=== PATIENT | female | born 1985 | race Caucasian/White ===

== ENCOUNTER → 2020-03-28 09:49 | Outpatient (CLI) | payer BC, SELFPAY ==
--- NOTE | ~2020-03-28 | US_ITS ---
US right upper quadrant INDICATION: Nausea, severe back pain and abdomen pain PROCEDURE: Realtime right upper abdominal ultrasound. COMPARISON: No prior studies for comparison. FINDINGS: The pancreas is normal without focal mass or pancreatic ductal dilation. Liver echotexture is increased, consistent with fatty infiltration. There is normal directional flow in the portal ve in. Gallbladder is filled with stones. Gallbladder wall is not well visualized. Common bile duct measure s 3 mm. No sonographic Massey's sign. IMPRESSION: 1: Cholelithiasis. 2: Fatty infiltration of the liver. Reviewed, dictated and finalized at location A. ING C[employer]
--- NOTE | ~2020-03-28 | XR_ITS ---
XR UGI w small bowel DATE: 03/28/2020 11:24 INDICATION: Abdominal pain, nausea TECHNIQUE: Air-contrast upper gastrointestinal series 3.3 minutes fluoroscopy time DAP: 58.634 120 fluoroscopic images, 9 overhead images COMPARISON: None FINDINGS: Normal deglutition and esophageal peristalsis. No stricture, mucosal fold thickening, erosi on, ulceration, intraluminal mass lesion or diverticulum of the esophagus, stomach or duodenum is det ected. There is normal transit of contrast until through the small bowel without obstruction. No mucosal fol d thickening, stricture, obstruction or abnormal dilatation, ulceration or diverticulum of the small bowel. Spot radiograph since the terminal ileum are normal. IMPRESSION: Normal upper gastrointestinal series and small bowel Reviewed, dictated and finalized at Location A. Reviewed, dictated and finalized at location B. ON ACREAGE MEASURER
== END ==
PROVIDERS: PCP Physician Assistant; Visit Provider Physician Assistant
DX: R11.0 Nausea (principal); K80.20 Calculus of gallbladder without cholecystitis without obstruction; K76.0 Fatty (change of) liver, not elsewhere classified
CPT/HCPCS: 74240; 74248; 76705

== ENCOUNTER 2020-04-15 00:27 | Outpatient (CLI) | payer BC, SELFPAY ==
[2020-04-15 18:50] LABS: SARS-CoV-2 RNA PCR Negative
== END 2020-04-15 00:28 | disposition home or self-care (01) ==
LOC: ANHCOVIDDT 00:27
PROVIDERS: PCP Physician Assistant; Visit Provider Surgery
DX: Z01.812 Encounter for preprocedural laboratory examination (principal); Z20.822 Contact with and (suspected) exposure to COVID-19
CPT/HCPCS: C9803; U0003

== ENCOUNTER 2020-04-15 09:34 | Outpatient (CLI) | payer BC, SELFPAY ==
[2020-04-15 10:07] LABS: Alanine Aminotransferase 29 U/L (4-35); Albumin Level 4.3 g/dL (3.5-5.1); Alkaline Phosphatase 85 U/L (38-126); Amylase 67 U/L (30-110); Anion Gap 5 mmol/L (8-16); Aspartate Amino Transferase 38 U/L (14-36); Bilirubin,Total 0.4 mg/dL (0.2-1.3); Blood Urea Nitrogen 13 mg/dL (7-17); Calcium 8.6 mg/dL (8.4-10.2); Carbon Dioxide 30 mmol/L (22-30); Chloride 103 mmol/L (98-107); Estimated Glomerular Filt Rate > 60; Glucose 103 mg/dL (65-105); Lipase 117 U/L (23-300); Potassium 4.1 mmol/L (3.4-5.0); Sodium 138 mmol/L (137-145)
== END 2020-04-15 09:35 | disposition home or self-care (01) ==
LOC: ANHSURGERY 09:36
PROVIDERS: PCP Physician Assistant; Visit Provider Surgery
DX: Z01.818 Encounter for other preprocedural examination (principal); K80.10 Calculus of gallbladder with chronic cholecystitis without obstruction
CPT/HCPCS: 36415; 80053; 82150; 82248; 83690; 86850; 86900; 86901

== ENCOUNTER 2020-04-18 00:54 | Day surgery (SDC) | payer BC, SELFPAY ==
[2020-04-11 13:29] VITALS: BMI 34.0
--- NOTE | 2020-04-17 13:12 | WPDANESEPPF ---
Anes - Initial Pre Proc Eval Procedure: Operation Date: 04/18/20 09:00 Proposed Procedures p Laparoscopic Cholecystectomy - Jyothi Beckwith MD Date/Time: 04/17/20 13:12 Surgeon: Jyothi Beckwith MD Pre Op Diagnosis: Chronic Cholecystitis With Stones Patient Data Age: 34 Gender: F Height: 1.68 m Weight: 95.5 kg Allergies Allergy/AdvReac Type Severity Reaction Status Date / Time progesterone Allergy Severe Hives Verified 04/18/20 07:24 cefadroxil [From Duricef] Allergy Mild Hives Verified 04/11/20 13:28 martín Allergy Mild Hives Verified 04/18/20 07:24 Home Medications Medication Instructions Recorded Confirmed Type citalopram 10 mg tablet 10 mg PO HS 04/04/20 04/18/20 History Patient hx anesthesia problems: none Family hx anesthesia problems: none [facility] Past Medical History Medical History (Updated 04/09/20 @ 14:36 by Babs Chong) Anxiety Migraines Family History Family History (Reviewed 04/09/20 @ 14:19 by Roya Flores [facility]) Mother Thyroid cancer Unknown Heart disease Cancer Social History Social History (Reviewed 04/09/20 @ 14:19 by Roya Flores [facility]) Smoking packs per day: 1 Smoking cigarettes per day: 20.0 Years smoked: 3 Smoking pack-years: 3.00 Smoking status: Former smoker Tobacco type: cigarettes Second hand tobacco smoke exposure: No Smoking end date: 04/11/10 Alcohol intake: current Substance use: never Living arrangements: with family Gender identity (if verbalized by the patient): Female Spiritual care concerns: No Anes - Eval Final PreProcedure Day of Procedure 04/17/20 13:12 Patient weight: obese Heart: regular rate and rhythm Lungs: clear to auscultation and normal air movement Airway: Mallampati scale class II Neurological: alert and oriented Last oral intake: >/= 8 hours ASA classification: II Emergent: no Anesthetic plan: proceed Anesthesia type and monitoring: general ETT and standard monitoring Informed Consent: The patient's anesthetic plan and its attendant risks and benefits were discussed with the patient/family/POA. Questions were solicited and answers provided to the satisfaction of the patient/family/POA.
--- NOTE | 2020-04-18 07:23 | WPDHPUPDATE1 ---
History and Physical Update Update Date/Time: 04/18/20 07:23 History and Physical has been reviewed, including an updated exam of the patient. There are NO changes in the patient's condition. Risks, benefits, and alternatives have been discussed and questions answered. Patient agrees to proceed with procedure.
[2020-04-18] MEDS: ACETAMINOPHEN 500 MG TABLET 1000 MG PO (07:32)
[2020-04-18 07:38] VITALS: BP 137/95; PULSE 79; RESP 14; TEMP 35.8; O2SAT 100
[2020-04-18] MEDS: LACTATED RINGERS 1,000 ML 30 ML IV CONT ×2 (07:57→09:40)
[2020-04-18] MEDS: KETOROLAC 15 MG/ML VIAL (*BKC) IV PUSH (07:58)
[2020-04-18] MEDS: ceFAZolin 2 GM/D5W 50 ML 2 GM/50 ML BAG IVPB (08:46)
[2020-04-18] MEDS: LIDO 1%/EPINEPHRINE 1:100,000 50 ML VIAL INFILTRATE (09:11)
--- NOTE | 2020-04-18 09:23 | SUR.OPER ---
ebl 5
--- NOTE | 2020-04-18 09:29 | P.OP_ITS ---
Procedure Note - Detailed Date of procedure: 04/18/20 Pre-op diagnosis: Chronic Cholecystitis With Stones Post-op diagnosis: same Procedure performed: laparoscopic cholecystectomy Description of procedure: The patient was taken to the operating room placed in the supine position. After adequate induction of general anesthesia, the patient was prepped and draped in normal sterile fashion. A time-out was then performed to verify the patient's identity as well as the procedure being performed. I then made a 5 mm incision in the infraumbilical region. Through this, a Veress needle was placed into the peritoneal cavity and CO2 gas was then insufflated. After adequate pneumoperitoneum was achieved, the Veress needle was removed and a 5 mm trocar was placed through this incision. I then placed the laparoscope through this trocar site and under direct visualization placed a further 12 mm subxiphoid port as well as 2 additional 5 mm ports in the right upper abdomen. The gallbladder was then identified and was noted to be modera tely inflamed. I was able to place a grasper at the dome of the gallbladder and this was retracted anterior and cephalad up over the liver. A 2nd retractor was then placed at the infundibulum and retracted laterally, this allowed visualization of the triangle of Calot. I then was able to visualize the cystic duct in its entirety from its proximal insertion into the gallbladder, to its distal junction with the common hepatic/common bile duct junction. At this point, I carefully skeletonized the proximal cystic duct with the [place] dissector. I then clipped and transected the proximal cystic duct. Next I visualized the cystic artery. Again the artery was skeletonized, clipped, and transected. I then used the Bovie cautery to take down the peritoneal attachments of the gallbladder off the liver bed. Once the gallbladder specimen was completely detached, an endo-pouch was placed through the 12 mm port site. I then placed the gallbladder specimen into the Endo pouch and removed the endo- pouch from the 12 mm port site. The specimen will now be sent to pathology for further review. I then copiously irrigated the right upper quadrant. Hemostasis was noted in the liver bed, the clips were noted to be in good position on both the cystic duct stump and the cystic artery stump. No other pathology was noted in the right upper quadrant. I then moved the laparoscope to the subxiphoid port. No iatrogenic injury or other pathology was noted in the lower abdomen. At this point, the abdomen was desufflated and all ports removed. The fascia of the 12 mm subxiphoid port was closed with a 0 Vicryl figure of 8 suture. All port sites were then closed with 4.O Monocryl subcuticular sutures. Dermabond was placed on each incision. The patient tolerated the procedure well, was extubated in the operating room postoperative and will be transferred to the recovery room in stable condition. Implants: none Anesthesia: GETA Surgeon: Jyothi Beckwith MD Estimated blood loss (mL): 5 Drains: No Packing: No Pathology: yes Complications: No immediate complications Condition: stable Disposition: PACU Findings: chronic cholecystitis with cholelithiasis
[2020-04-18 09:40] VITALS: BP 138/66; PULSE 73; RESP 12; TEMP 36; O2SAT 100
[2020-04-18 09:55] VITALS: BP 146/73; PULSE 73; RESP 14; O2SAT 100
[2020-04-18 10:10] VITALS: BP 130/76; PULSE 79; RESP 16; O2SAT 96
[2020-04-18 10:20] VITALS: BP 144/77; PULSE 70; RESP 16; O2SAT 95
[2020-04-18 10:50] VITALS: BP 132/77; PULSE 73; RESP 16; O2SAT 97
[2020-04-18] MEDS: oxyCODONE HCL (*CRX) 5 MG TAB IR PO (10:51)
== END 2020-04-18 12:20 | disposition home or self-care (01) ==
PROVIDERS: PCP Physician Assistant; Visit Provider Surgery
PROC: 0FT44ZZ Resection of Gallbladder, Percutaneous Endoscopic Approach (ICD-10-PCS; CPT 47562; principal; 2020-04-18 09:00)
DX: K80.10 Calculus of gallbladder with chronic cholecystitis without obstruction (principal); F41.9 Anxiety disorder, unspecified; Z87.891 Personal history of nicotine dependence; E66.9 Obesity, unspecified; Z68.33 Body mass index [BMI] 33.0-33.9, adult
CPT/HCPCS: 47562; 88304; A9270; J0690; J1100; J1170; J1885; J2001; J2250; J2405; J2704; J2710; J3010; J7030; J7120

== ENCOUNTER 2021-01-30 18:25 | Emergency (ER) | payer BC, SELFPAY ==
[2021-01-30 18:53] VITALS: BP 177/124; PULSE 96; RESP 18; TEMP 36.8; O2SAT 100
[2021-01-30 19:09] LABS: Basophils Absolute Auto 0.1 K/mm3 (0.0-0.1); Basophils Percent Auto 0.5 % (0.2-1.2); Eosinophils Absolute Auto 0.1 K/mm3 (0-0.3); Eosinophils Percent Auto 1.3 % (0-4.4); Hematocrit 38.2 % (37.0-47.0); Hemoglobin 11.7 g/dL (12.0-15.0); Immature Granulocyte Absolute 0.03 K/mm3 (0.00-0.031); Immature Granulocyte Percent A 0.3 % (0-0.5); Lymphocytes Absolute Auto 3.46 K/mm3 (0.9-3.2); Lymphocytes Percent Auto 31.6 % (18.3-44.2); Mean Corpuscular HGB Conc 30.6 g/dl (32-36); Mean Corpuscular Hemoglobin 25.1 pg (26-34); Mean Corpuscular Volume 81.8 fl (80-100); Mean Platelet Volume 10.7 fl (7.4-10.4); Monocytes Absolute Auto 0.7 K/mm3 (0.1-0.6); Monocytes Percent Auto 6.1 % (2.6-8.5); Neutrophils Absolute Auto 6.6 K/mm3 (1.3-6.7); Neutrophils Percent Auto 60.2 % (45.5-73.1); Platelet Count Result 304 k/mm3 (150-375); Red Blood Count 4.67 M/mm3 (4.2-5.4); Red Cell Distribution Width 13.6 % (11.5-14.5); White Blood Count 10.9 K/mm3 (4.5-10.0)
[2021-01-30 19:37] LABS: Beta HCG Quantitative < 2.39 mIU/ML
--- NOTE | 2021-01-30 21:48 | ED.FEMALEGU ---
HPI - Female Genitourinary General Chief complaint: Vaginal Bleeding Stated complaint: Vaginal Bleeding Time Seen by Provider: 01/30/21 21:48 Source: patient Mode of arrival: ambulatory Limitations: no limitations History of Present Illness HPI Narrative: Patient is a 35-year-old female complaining of vaginal bleeding patient, heavy, x2 weeks. 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 Patient states that she has a follow-up appointment next week. Patient denies being . Patient denies any pelvic pain, abdominal pain, nausea, vomiting, urinary symptoms, fever or chills. Related Data Home Medications Medication Instructions Recorded Confirmed citalopram 10 mg tablet 10 mg PO HS 04/04/20 05/08/20 Allergies Allergy/AdvReac Type Severity Reaction Status Date / Time progesterone Allergy Severe Hives Verified 05/08/20 10:02 cefadroxil [From Duricef] Allergy Mild Hives Verified 05/08/20 10:02 martín Allergy Mild Hives Verified 05/08/20 10:02 Review of Systems Review of Systems: All systems reviewed & are unremarkable except as noted in HPI and below Constitutional: Constitutional: Denies body ache(s), Denies chills, Denies excessive sweating, Denies fatigue, Denies fever(s), Denies headache(s), Denies lethargy, Denies malaise, Denies weakness and Denies weight loss Eyes: Eyes: Denies blurry vision, Denies change in vision and Denies loss of vision ENT: Denies dizziness, Denies ear discharge, Denies headache(s), Denies lip swelling, Denies epistaxis, Denies nasal congestion, Denies neck pain, Denies throat swelling and Denies tongue swelling Cardiovascular: Cardiovascular: Denies chest pain, Denies chest pain at rest, Denies chest pain with activity, Denies diaphoresis, Denies rapid heart rate, Denies edema, Denies irregular heart rhythm, Denies lightheadedness, Denies palpitations, Denies dyspnea and Denies dyspnea on exertion Respiratory: Respiratory: Denies chest congestion, Denies cough, Denies hemoptysis, Denies dyspnea and Denies dyspnea on exertion Gastrointestinal: Gastrointestinal: Denies abdominal pain, Denies melena, Denies hematochezia, Denies diarrhea, Denies nausea, Denies vomiting and Denies hematemesis Musculoskeletal: Musculoskeletal: Denies abnormal gait, Denies deformity, Denies joint swelling, Denies limited range of motion, Denies neck pain and Denies numbness Neurologic: Denies Abnormal speech present, Denies abnormal gait, Denies confusion, Denies dizziness, Denies headache(s), Denies focal weakness, Denies loss of vision, Denies numbness, Denies Other visual disturbances, Denies Sensory deficit (Neuro) and Denies weakness Psychiatric: Psychiatric: Denies confusion, Denies depression, Denies auditory hallucinations, Denies homicidal ideation and Denies suicidal ideation Endocrine: Endocrine: Denies cold intolerance, Denies excessive sweating, Denies fatigue, Denies heat intolerance and Denies palpitations Hematologic/Lymphatic: Hematologic/Lymphatic: Denies easy bruising Allergic/Immunologic: Allergic/Immunologic: Denies lip swelling, Denies throat swelling and Denies tongue swelling PMFSH Past Medical History Medical History Anxiety Migraines Surgical History Surgical History Hx laparoscopic cholecystectomy 04/18/20 Family History Family History Mother Thyroid cancer Unknown Heart disease Cancer Social History Social History Smoking packs per day: 1 Smoking cigarettes per day: 20.0 Years smoked: 3 Smoking pack-years: 3.00 Smoking status: Former smoker Tobacco type: cigarettes Second hand tobacco smoke exposure: No Smoking end date: 04/11/10 Alcohol intake: current Substance use: never Gender
[2021-01-30] MEDS: SODIUM CHLORIDE 0.9% IV 1,000 ML 999 ML IV CONT (22:08)
[2021-01-30 23:33] VITALS: BP 148/86; BP 163/113; PULSE 65; PULSE 76
[2021-01-30 23:35] VITALS: BP 184/124; PULSE 86
[2021-01-30 23:39] VITALS: BP 174/100; PULSE 73; RESP 18; O2SAT 100
[2021-01-30 23:56] LABS: Alanine Aminotransferase 21 U/L (4-35); Albumin Level 4.5 g/dL (3.5-5.1); Alkaline Phosphatase 100 U/L (38-126); Anion Gap 13 mmol/L (8-16); Aspartate Amino Transferase 29 U/L (14-36); Bilirubin,Total 0.4 mg/dL (0.2-1.3); Blood Urea Nitrogen 11 mg/dL (7-17); Calcium 9.2 mg/dL (8.4-10.2); Carbon Dioxide 23 mmol/L (22-30); Chloride 100 mmol/L (98-107); Estimated CRCL calculation 98 ml/min; Estimated Glomerular Filt Rate > 60; Glucose 97 mg/dL (65-110); Potassium 4.1 mmol/L (3.4-5.0); Sodium 136 mmol/L (137-145)
[2021-01-31 00:13] VITALS: BP 145/96; PULSE 82; RESP 15; TEMP 36.8; O2SAT 99
[2021-01-31 00:21] VITALS: BP 145/96; PULSE 81; RESP 18; O2SAT 98
== END 2021-01-31 00:26 | disposition home or self-care (01) ==
PROVIDERS: Emergency Medicine; Emergency Provider Emergency Medicine; PCP Physician Assistant
DX: N93.9 Abnormal uterine and vaginal bleeding, unspecified (principal); Z87.891 Personal history of nicotine dependence; F41.9 Anxiety disorder, unspecified
CPT/HCPCS: 36415; 80053; 84702; 85025; 96360; 99283; J7030

== ENCOUNTER 2021-03-18 11:33 | Outpatient (CLI) | payer BC, SELFPAY ==
--- NOTE | 2021-03-18 11:34 | ECG_ITS ---
Measurements Intervals [place] Rate: 81 P: 10 WV: 139 QRS: -7 QRSD: 99 T: 28 QT: 370 QTc: 432 Interpretive Statements SINUS RHYTHM DELAYED PRECORDIAL R/S TRANSITION MINIMAL Q WAVES- HIGH LATERAL LEADS BASELINE ARTIFACT- II, III, AVF BORDERLINE ECG Electronically Signed On 03-18-2021 11:52:14 PRINCIPAL DATA ARCHITECT by Raymond Donis D.O.
== END 2021-03-18 11:34 | disposition home or self-care (01) ==
LOC: ANHSURGERY 11:33
PROVIDERS: PCP Physician Assistant; Visit Provider Student in an Organized Health Care Education/Training Program
DX: Z01.818 Encounter for other preprocedural examination (principal); N92.1 Excessive and frequent menstruation with irregular cycle; I10 Essential (primary) hypertension
CPT/HCPCS: 36415; 86850; 86900; 86901; 93005

== ENCOUNTER 2021-03-24 00:42 | Day surgery (SDC) | payer BC, SELFPAY ==
[2021-03-14 09:20] VITALS: BMI 33.0
--- NOTE | 2021-03-14 09:36 | PC.NURSE ---
Report to the Outpatient Waiting Room, entrance under the green pavilion located off [facility], at time 11:30 on date 03/24/21. OR Time: 1:30. - You and your visitor will be asked a series of questions to screen for COVID 19 for your protection. - A mask is required within the hospital. - Only one visitor is allowed at this time. Patient visitors will be guided where to wait when not with patient. Preoperative COVID Testing Requirements: No COVID Test needed if: (proof is required; if not received patient will have Rapid Test prior to entry) - Patient has received COVID Vaccine at least 14 days prior to procedure date or - Patient has positive COVID test result within last 90 days of surgery date. COVID Test needed if above criteria is not met If not COVID vaccinated a COVID test must be conducted within 72 hours of surgery and patient is asked to isolate self from time of testing until procedure. You will go to the [facility] for your COVID testing. The [facility] is located at the corner of [address] [facility]. You will only be called if COVID results are positive and your surgeon may reschedule your elective surgery date. Patients may have clear liquids (water, carbonated beverages, clear teas, apple juice) until 3 hours prior to surgery with a maximum of 20 ounces. - No food from midnight until time of surgery - Infants may have breast milk until 4 hours before surgery, infant formula 6 hours prior to surgery. - Children will be allowed to drink immediately following surgery. If applicable, please bring a bottle or sippy cup to assist with drinking. Juice, water, soda, and popsicles are readily available. For infants on formula, please bring formula the day of surgery. Pacifiers are allowed. Take the following medications with a SIP of water the morning of surgery: METHYLPHENIDATE Medications to discontinue per physician: N/A Date to take last dose: N/A Please no make-up, nail greek, hairspray, perfume, deodorant, or body powder the day of surgery. No jewelry (including any body piercings) or valuables the day of surgery, leave them at home. Please take a shower or bath the night before, or the morning of, surgery with an antibacterial soap. Wear comfortable, loose fitting clothing. Children are encouraged to wear pajamas. - Jewelry must be removed prior to entering the operating room. Rings and piercings that are not removed may be cut off. - The hospital will not accept responsibility for valuables. - Please leave all valuables, including medications, at home the day of surgery. If you are going home after surgery, a licensed customer service driver must drive you home. - NO public transportation without another adult. - We recommend that an adult stay with you for 24 hours following discharge. - We also recommend that you do not drive, make important decision, drink alcoholic beverages, or take any drugs that were not prescribed by your health care provider for at least 24 hours after your discharge time. For Pediatric surgeries, we recommend two adults accompany the child home (only one inside the building at this time). Follow any additional instructions given to you from your surgeon. Telephone instructions given to DAMION WHITE and asked if any additional questions and then verbalized understanding. Patient advised to call surgeon office or pre surgery nurse liaison [phone] if any additional questions.
[2021-03-24] VITALS (9 sets, daily range): BP systolic 112–144; BP diastolic 66–92; PULSE 64–87; RESP 10–16; TEMP 36.7–37.1; O2SAT 97–100
--- NOTE | 2021-03-24 07:53 | PM.IMHP ---
H&P: HPI History of Present Illness Date/Time: 03/24/21 07:53 Chief Complaint: abnormal uterine bleeding pelvic pain Narrative: 35 yo who presents for robotic TLH/BS for abnormal uterine bleeding and pelvic pain. Pt has been dealing with AUB for the past several months. Pt was placed on OCPs and continued to have break through bleeding. Pt elected for definitive management via hysterectomy. Review of Systems Cardiovascular: Cardiovascular: Denies chest pain, Denies leg edema, Denies palpitations, Denies dyspnea and Denies dyspnea on exertion Respiratory: Respiratory: Denies cough, Denies dyspnea and Denies dyspnea on exertion Gastrointestinal: Gastrointestinal: Denies abdominal pain, Denies constipation, Denies diarrhea, Denies nausea and Denies vomiting Genitourinary: Genitourinary: Denies hematuria, Denies urinary frequency, Denies dysuria, Denies pelvic pain, Denies urinary incontinence and Denies vaginal discharge Neurologic: Reports system reviewed and no additional complaints, except as documented Psychiatric: Psychiatric: Reports no additional psychiatric complaints Endocrine: Endocrine: Denies palpitations PMFSH Past Medical History Medical History Anxiety Migraines Surgical History Surgical History Hx laparoscopic cholecystectomy 04/18/20 Family History Family History Mother Thyroid cancer Unknown Heart disease Cancer Social History Social History Smoking packs per day: 1 Smoking cigarettes per day: 20.0 Years smoked: 3 Smoking pack-years: 3.00 Smoking status: Former smoker Tobacco type: cigarettes Second hand tobacco smoke exposure: No Smoking end date: 04/12/05 Alcohol intake: current Substance use: never Substance use type: does not use Living arrangements: with family Gender identity (if verbalized by the patient): Female Spiritual care concerns: No Meds Home Medications and Allergies Home Medications Medication Instructions Recorded Confirmed Type escitalopram oxalate 10 mg PO HS 03/14/21 03/14/21 History losartan 100 mg PO DAILY 03/14/21 03/14/21 History methylphenidate HCl 36 mg PO DAILY 03/14/21 03/14/21 History Allergies Allergy/AdvReac Type Severity Reaction Status Date / Time progesterone Allergy Severe Hives Verified 03/14/21 09:16 cefadroxil [From Duricef] Allergy Mild Hives Verified 03/14/21 09:16 martín Allergy Mild Hives Verified 03/14/21 09:16 Exam Const: General: no acute distress Eyes: EOM: EOMs intact bilaterally Neck: Neck: supple Thyroid: thyroid normal Chest: Breast/axilla inspection: normal inspection of the breasts Breast/axilla palpation: normal palpation of the breasts, normal palpation of the axillae and no axillary lymphadenopathy Resp: Effort & Inspection: normal respiratory effort Auscultation: clear to auscultation bilaterally Cardio: Rate: regular rate Rhythm: regular rhythm GI: Inspection: non-distended GI Palp: Yes Soft to palpation, No Tenderness to palpation present (GI) and No Guarding due to palpation present (GI) Auscultation: normal bowel sounds : General: No bladder normal to palpation External Female Exam: normal external appearance Speculum Exam - Vagina: normal vaginal discharge and No vaginal bleeding Speculum Exam - Cervix: nontender Bimanual exam- vagina & uterus: No bladder normal to palpation and No Cervical tenderness present OB/external & speculum: No vaginal bleeding Skin: General skin exam: normal color and no rashes or lesions noted Neuro: Cognition (Neuro): normal cognition Speech: normal speech Extrem: General: normal to inspection and no edema Psych: Mental Status: mental status grossly normal Affect: normal affect Assessment and Plan Assess
--- NOTE | 2021-03-24 07:57 | WPDHPUPDATE1 ---
History and Physical Update Update Date/Time: 03/24/21 07:57 History and Physical has been reviewed, including an updated exam of the patient. There are NO changes in the patient's condition. Risks, benefits, and alternatives have been discussed and questions answered. Patient agrees to proceed with procedure.
[2021-03-24] MEDS: ACETAMINOPHEN 500 MG TABLET 1000 MG PO (12:16)
[2021-03-24] MEDS: LACTATED RINGERS 1,000 ML 30 ML IV CONT ×2 (12:16→15:43)
[2021-03-24] MEDS: KETOROLAC 15 MG/ML VIAL (*BKC) IV PUSH (12:19)
--- NOTE | 2021-03-24 12:21 | WPDANESEPPF ---
Anes - Initial Pre Proc Eval Procedure: Operation Date: 03/24/21 13:30 Proposed Procedures p Robotic Assisted Total Vaginal Hysterectomy with Bilateral Salpingectomy - Leland Bradford MD Date/Time: 03/24/21 12:21 Surgeon: Leland Bradford MD Pre Op Diagnosis: excessive irregular bleeding, pelvic pain, Patient Data Age: 35 Gender: F Height: 1.68 m Weight: 92 kg Last Vital Signs Temp 37.1 C 03/24/21 12:10 Pulse 87 03/24/21 12:10 Resp 16 03/24/21 12:10 BP 144/92 H 03/24/21 12:10 Pulse Ox 100 03/24/21 12:10 Allergies Allergy/AdvReac Type Severity Reaction Status Date / Time progesterone Allergy Severe Hives Verified 03/24/21 11:37 cefadroxil [From Duricef] Allergy Mild Hives Verified 03/24/21 11:37 martín Allergy Mild Hives Verified 03/24/21 11:37 Home Medications Medication Instructions Recorded Confirmed Type escitalopram oxalate 10 mg PO HS 03/14/21 03/24/21 History losartan 100 mg PO DAILY 03/14/21 03/24/21 History methylphenidate HCl 36 mg PO DAILY 03/14/21 03/24/21 History Patient hx anesthesia problems: none Family hx anesthesia problems: none Results Review: All pre-operative results and documents have been reviewed as part of the pre-operative evaluation. [facility] Past Medical History Medical History ADD (attention deficit disorder) Anxiety Hypertension Migraines Surgical History Surgical History Hx laparoscopic cholecystectomy 04/18/20 Family History Family History Mother Thyroid cancer Unknown Heart disease Cancer Social History Social History Smoking packs per day: 1 Smoking cigarettes per day: 20.0 Years smoked: 3 Smoking pack-years: 3.00 Smoking status: Former smoker Tobacco type: cigarettes Second hand tobacco smoke exposure: No Smoking end date: 04/12/05 Alcohol intake: current Substance use: never Substance use type: does not use Living arrangements: with family Gender identity (if verbalized by the patient): Female Spiritual care concerns: No Anes - Eval Final PreProcedure Day of Procedure 03/24/21 12:21 Patient weight: obese Heart: regular rate and rhythm Lungs: clear to auscultation Airway: Mallampati scale class II Neurological: alert and oriented Last oral intake: >/= 8 hours ASA classification: III Emergent: no Anesthetic plan: proceed Anesthesia type and monitoring: general ETT and standard monitoring Results Review: All pre-operative results and documents have been reviewed as part of the pre-operative evaluation. Informed Consent: The patient's anesthetic plan and its attendant risks and benefits were discussed with the patient/family/POA. Questions were solicited and answers provided to the satisfaction of the patient/family/POA.
[2021-03-24] MEDS: GENTAMICIN SULFATE INJ 365 MG in DEXTROSE 5% 100 ML 109.13 MG IVPB (13:53)
[2021-03-24] MEDS: CLINDAMYCIN 900 MG/D5W 50 ML 900 MG/50 ML PIGGYBACK 50 MG IVPB (14:02)
[2021-03-24] MEDS: LIDO 1%/EPINEPHRINE 1:100,000 50 ML VIAL 20 ML INFILTRATE (14:38)
--- NOTE | 2021-03-24 15:23 | SUR.OPER ---
[id number]=[id number]
--- NOTE | 2021-03-24 15:24 | W.PM.PROC2 ---
Procedure Note - Detailed Date of Procedure 03/24/21 Pre-op Diagnosis excessive irregular bleeding, pelvic pain, Post-op Diagnosis same Procedure Performed robotic assisted total laparoscopic hysterectomy and bilateral salpingectomy Surgeon Leland Bradford MD Anesthesia general Description of Procedure After the patient was appropriately consented she was taken to the operating room where she was transferred to the table in a dorsal supine position. General anesthesia was then induced with endotracheal intubation. The patient was transferred to a dorsal lithotomy position using adjustable yellow-fin stirrups. Her position was adjusted for appropriate support of her lower back and lower extremities. The patient was prepped and draped. A transurethral cosby catheter was place. The cervix was sequentially dilated and a MEHRAN uterine manipulator placed in typical fashion about a 3cm DONN ring. Gloves were changed. After confirmation of a functioning orogastric tube, lidocaine was injected at Carreno's point in the LUQ and a 5mm incision was made. A 5mm Optiview trocar was then inserted into the abdominal cavity under direct visualization and done so without complication. The abdomen was then insufflated with approximately 2-3L of CO2 establishing a pneumoperitoneum and the patient was placed in Trendelenburg position. Just above the umbilicus in the midline, a 8 mm incision made after injection of lidocaine and a 8 mm bladeless trocar advanced into the abdominal cavity under direct visualization without incident. We subsequently placed two robotic ports in a similar fashion, one in the left mid-quadrant and one in the right, 10cm lateral to the midline port. The robot was then docked. Attention was turned to the left pelvis. The left fallopian tube was removed by sequentially dividing the mesosalpinx towards the uterus sparing the ovary. The utero-ovarian ligament was desiccated and transected, as was the round ligament. The posterior peritoneal leaf was taken down to the DONN ring. The anterior leaf was developed as well as the start of the bladder flap. The left uterine artery was then skeletonized and desiccated and transected just above the level of the DONN ring. Attention was turned to the right pelvis. The right fallopian tube was removed by sequentially dividing the mesosalpinx towards the uterus sparing the ovary. The utero-ovarian ligament was desiccated and transected, as was the round ligament. The posterior peritoneal leaf was taken down to the DONN ring. The anterior leaf was developed as well as the start of the bladder flap. The right uterine artery was then skeletonized and desiccated and transected just above the level of the DONN ring. The bladder was then further dissected inferiorly over the level of the DONN ring. A circumferential colpotomy was made using monopolar current. The uterus, cervix, bilateral tubes were then delivered transvaginally. I then placed a single figure of eight suture of 0-vicryl in the left corner of the vaginal cuff. I then re-approximated the colpotomy with a running #1 PDO Quill suture in 2 layers. Following this dissection, the abdomen and pelvis were copiously irrigated and all surgical sites found to be hemostatic. Skin sites were reapproximated with 4-0 Vicryl in a subcuticular fashion. Steri-Strips were placed. The patient tolerated the procedure well. Sponge, needle and instrument counts were correct x 2 and the patient was taken to recovery in stable condition. Ancef wase given for antimicrobial prophylaxis. The patient had SCD's on for VTE prophylaxis during the entire procedure. Estimated Blood Loss 100 Drains No Packing No Pathology yes (cervix, uterus, bilateral fallopian tubes) Complications No immediate complications Condition stable Disposition PACU
[2021-03-24] MEDS: KETOROLAC 30 MG/ML VIAL (*BKC) IV PUSH (17:42)
[2021-03-24] MEDS: LACTATED RINGERS 1,000 ML 125 ML IV CONT (17:42)
--- NOTE | 2021-03-24 17:56 | ADMGEN ---
1720-This patient, Lisa Palafox, was admitted to OB 2nd Floor Room 280-00. Patient/family oriented to hospital policies and general routines including ID bracelet, bed and alarms, visiting hours, pain management, procedures, bathroom and other care routines, personal items, smoking policy, room service/diet, and visiting hours. Information on how to activate the Rapid Response Team has been discussed. Patient/Family are encouraged to report perceived risks to care and to ask questions if they do not understand what they are told or what they should do.
[2021-03-24] MEDS: ESCITALOPRAM OXALATE 10 MG TABLET PO (21:17)
[2021-03-24] MEDS: SENNA/DOCUSATE SODIUM TABLET 2 TAB PO (21:17)
[2021-03-25 00:30] VITALS: BP 114/82; PULSE 80; RESP 18; TEMP 35.7; O2SAT 98
[2021-03-25] MEDS: KETOROLAC 30 MG/ML VIAL (*BKC) IV PUSH (01:00)
[2021-03-25] MEDS: LACTATED RINGERS 1,000 ML 125 ML IV CONT (02:03)
[2021-03-25 04:47] VITALS: BP 126/77; PULSE 72; RESP 16; TEMP 36; O2SAT 98
[2021-03-25 05:56] LABS: Basophils Absolute Auto 0.1 K/mm3 (0.0-0.1); Basophils Percent Auto 0.6 % (0.2-1.2); Eosinophils Absolute Auto 0.1 K/mm3 (0-0.3); Eosinophils Percent Auto 0.9 % (0-4.4); Hematocrit 30.5 % (37.0-47.0); Hemoglobin 9.3 g/dL (12.0-15.0); Immature Granulocyte Absolute 0.03 K/mm3 (0.00-0.031); Immature Granulocyte Percent A 0.3 % (0-0.5); Lymphocytes Absolute Auto 2.55 K/mm3 (0.9-3.2); Lymphocytes Percent Auto 28.7 % (18.3-44.2); Mean Corpuscular HGB Conc 30.5 g/dl (32-36); Mean Corpuscular Hemoglobin 24.2 pg (26-34); Mean Corpuscular Volume 79.2 fl (80-100); Mean Platelet Volume 10.9 fl (7.4-10.4); Monocytes Absolute Auto 0.6 K/mm3 (0.1-0.6); Monocytes Percent Auto 6.2 % (2.6-8.5); Neutrophils Absolute Auto 5.6 K/mm3 (1.3-6.7); Neutrophils Percent Auto 63.3 % (45.5-73.1); Platelet Count Result 286 k/mm3 (150-375); Red Blood Count 3.85 M/mm3 (4.2-5.4); Red Cell Distribution Width 14.4 % (11.5-14.5); White Blood Count 8.9 K/mm3 (4.5-10.0)
[2021-03-25 06:24] LABS: Anion Gap 4 mmol/L (8-16); Blood Urea Nitrogen 6 mg/dL (7-17); Calcium 7.8 mg/dL (8.4-10.2); Carbon Dioxide 25 mmol/L (22-30); Chloride 103 mmol/L (98-107); Estimated CRCL calculation 127 ml/min; Estimated Glomerular Filt Rate > 60; Glucose 87 mg/dL (65-110); Potassium 4.2 mmol/L (3.4-5.0); Sodium 132 mmol/L (137-145)
--- NOTE | 2021-03-25 07:24 | WPDANESPN ---
Anes - Prog Note Post-Op Date/Time: 03/25/21 07:24 Cardiovascular status: normal Respiratory status: normal Airway patency: baseline Mental status: baseline Post-Op hydration status: normal Vital Signs: Last Vital Signs Temp 36.0 C L 03/25/21 04:47 Pulse 72 03/25/21 04:47 Resp 16 03/25/21 04:47 BP 126/77 03/25/21 04:47 Pulse Ox 98 03/25/21 04:47 Pain Score (VAS): 0 I/O: Intake & Output 03/24/21 03/24/21 03/25/21 15:59 23:59 07:59 Intake Total 1159.611 472 4834 Output Total 500 700 Balance 1159.125 50 675 Laboratory Tests 03/25/21 05:03 03/25/21 05:03 03/25/21 03/25/21 05:03 05:03 WBC 8.9 RBC 3.85 L Hgb 9.3 L Hct 30.5 L MCV 79.2 L MCH 24.2 L MCHC 30.5 L RDW 14.4 Plt Count 286 MPV 10.9 H Immature Gran % (Auto) 0.3 Neut % (Auto) 63.3 Lymph % (Auto) 28.7 [place] % (Auto) 6.2 Eos % (Auto) 0.9 Baso % (Auto) 0.6 Lymph # (Auto) 2.55 [place] # (Auto) 0.6 Eos # (Auto) 0.1 Baso # (Auto) 0.1 Abs Immat Gran (auto) 0.03 Absolute Neuts (auto) 5.6 Absolute Nucleated RBC 0.0 Nucleated RBC % 0.0 Sodium 132 L Potassium 4.2 Chloride 103 Carbon Dioxide 25 Anion Gap 4 L BUN 6 L D Creatinine 0.60 L Estim Creat Clear Calc 127 Estimated GFR > 60 Glucose 87 Calcium 7.8 L Post-procedural complaints: none Patient Feedback: Patient satisfied with anesthetic care.
[2021-03-25 07:40] VITALS: BP 133/82; PULSE 82; RESP 18; TEMP 36.7; O2SAT 98
--- NOTE | 2021-03-25 07:44 | PM.DS ---
DS: Admitting Diagnosis Discharge Date 03/25/21 Admitting Diagnosis AUB pelvic pain DS: Summary Hospital Course Hospital Course: Lisa Palafox was admitted after robotic assisted total laparoscopic hysterectomy and bilateral salpingectomy for abnormal uterine bleeding and pelvic pain. The above procedure was performed with no complications. She is doing well post op. She states her pain is well controlled with PO medications. She reports minimal bleeding. She is ambulating up to the chair. Her cosby catheter was removed. She is tolerating PO without N/V. She reports passing flatus. Status at Discharge Overall status at discharge: patient is progressing back to baseline Time Spent with Patient Time attestation: Total time spent providing and/or coordinating discharge services: Time spent: Less than 30 minutes Exam Const: General: comfortable and no acute distress Limitations: no limitations Resp: Effort & Inspection: normal respiratory effort Auscultation: clear to auscultation bilaterally Cardio: Rate: regular rate Rhythm: regular rhythm GI: Inspection: non-distended GI Palp: Yes Soft to palpation, Yes Tenderness to palpation present (GI) (milder tenderness to deep palpation) and No Guarding due to palpation present (GI) Auscultation: normal bowel sounds Other: incisions C/D/I covered with dermabond Urinary Catheter: Urinary Catheter: urine clear Skin: General skin exam: normal color Extrem: General: normal to inspection Psych: Mental Status: mental status grossly normal Affect: normal affect DS: Data Data Completed and Pending Pending studies at discharge: Pending at discharge 03/24/21 14:34 Surgical [PTH] Routine Labs on day of discharge: Labs from last 24 hours 03/25/21 03/25/21 05:03 05:03 WBC 8.9 RBC 3.85 L Hgb 9.3 L Hct 30.5 L MCV 79.2 L MCH 24.2 L MCHC 30.5 L RDW 14.4 Plt Count 286 MPV 10.9 H Immature Gran % (Auto) 0.3 Neut % (Auto) 63.3 Lymph % (Auto) 28.7 [place] % (Auto) 6.2 Eos % (Auto) 0.9 Baso % (Auto) 0.6 Lymph # (Auto) 2.55 [place] # (Auto) 0.6 Eos # (Auto) 0.1 Baso # (Auto) 0.1 Abs Immat Gran (auto) 0.03 Absolute Neuts (auto) 5.6 Absolute Nucleated RBC 0.0 Nucleated RBC % 0.0 Sodium 132 L Potassium 4.2 Chloride 103 Carbon Dioxide 25 Anion Gap 4 L BUN 6 L D Creatinine 0.60 L Estim Creat Clear Calc 127 Estimated GFR > 60 Glucose 87 Calcium 7.8 L Discharge Plan Discharge Patient Disposition: Home, Self-Care Discharge Instructions: call or return for temperature >100.4, bleeding >2 pads/hr for 2 hrs, pain not controlled with medications Patient Instructions: Laparoscopic Hysterectomy (DC) Stand Alone Forms: General Discharge Instructions Follow-up/Referrals: Leland Bradford MD [Physician] - 2 Weeks Discharge Medications: New sennosides-docusate sodium [Senokot-S] 8.6-50 mg Tablet 2 tab PO HS Qty: 30 RF: 0 ibuprofen 600 mg Tablet 600 mg PO Q6H PRN (Reason: Cramping) Qty: 30 RF: 0 oxycodone-acetaminophen 5-325 mg tablet 1 tablet PO Q6H PRN (Reason: pain) Qty: 28 RF: 0 Continued losartan 50 mg tablet 100 mg PO DAILY RF: 0 methylphenidate HCl 36 mg tablet extended release 24hr 36 mg PO DAILY RF: 0 escitalopram oxalate 20 mg tablet 10 mg PO HS RF: 0
[2021-03-25] MEDS: LOSARTAN POTASSIUM 50 MG TABLET 100 MG PO (08:22)
[2021-03-25] MEDS: IBUPROFEN 600 MG TABLET PO (08:23)
[2021-03-25] MEDS: HYDROcodone/acetaminophen (*CRX) 5-325 MG TABLET 1 TAB PO (08:24)
== END 2021-03-25 11:20 | disposition home or self-care (01) ==
LOC: ANHSURGERY 11:29 → ANHOB2 17:20
PROVIDERS: PCP Physician Assistant; Visit Provider Student in an Organized Health Care Education/Training Program
PROC: (CPT 58571; principal; 2021-03-24 13:30)
DX: N93.9 Abnormal uterine and vaginal bleeding, unspecified (principal); R10.2 Pelvic and perineal pain; N83.8 Other noninflammatory disorders of ovary, fallopian tube and broad ligament; N73.6 Female pelvic peritoneal adhesions (postinfective); F98.8 Other specified behavioral and emotional disorders with onset usually occurring in childhood and adolescence; I10 Essential (primary) hypertension; F41.9 Anxiety disorder, unspecified; Z87.891 Personal history of nicotine dependence; Z23 Encounter for immunization; E66.9 Obesity, unspecified; Z68.32 Body mass index [BMI] 32.0-32.9, adult
CPT/HCPCS: 58571; S2900; 36415; 80048; 85025; 88307; 90471; 90653; 99199; A9270; G0008; J1170; J1580; J1885; J2250; J2405; J2704; J2710; J3010; J7030; J7120

== ENCOUNTER 2021-04-23 18:47 | Observation (INO) | payer BC, SELFPAY ==
[2021-04-23] VITALS (8 sets, daily range): BP systolic 120–161; BP diastolic 80–114; PULSE 66–116; RESP 14–18; TEMP 36.6–36.8; O2SAT 99–100; BMI 31.4
--- NOTE | 2021-04-23 20:09 | ED.FEMALEGU ---
HPI - Female Genitourinary General Chief complaint: Vaginal Bleeding Stated complaint: unknown Time Seen by Provider: 04/23/21 20:08 Source: patient Mode of arrival: ambulatory Limitations: no limitations History of Present Illness HPI Narrative: Patient is 35 years old white female status post hysterectomy secondary to uncontrollable vaginal bleeding from March 24, 2021. Patient been having intermittent vaginal bleeding, lower abdominal cramps since that time until now. Today work-up with lower back pain, at 5:30 PM today started having quite a bit of vaginal bleeding with a lot of blood clots. Patient been feeling dizzy unable to sit because of lightheadedness. Related Data Home Medications Medication Instructions Recorded Confirmed escitalopram oxalate 10 mg PO HS 03/14/21 03/24/21 losartan 100 mg PO DAILY 03/14/21 03/24/21 methylphenidate HCl 36 mg PO DAILY 03/14/21 03/24/21 Allergies Allergy/AdvReac Type Severity Reaction Status Date / Time progesterone Allergy Severe Hives Verified 03/24/21 11:37 cefadroxil [From [facility]] Allergy Mild Hives Verified 03/24/21 11:37 martín Allergy Mild Hives Verified 03/24/21 11:37 Review of Systems Review of Systems: CONSTITUTIONAL: Denies fever, chills, or sweats. EYES: Denies visual changes, redness, or discharge. ENT: Denies rhinorrhea, congestion, sore throat, or otalgia. CARDIOVASCULAR: Denies chest pain, palpitations, or edema. RESPIRATORY: Denies cough or dyspnea. GASTROINTESTINAL: Denies abdominal pain, nausea, vomiting, or diarrhea. GENITOURINARY: Denies dysuria or hematuria. SKIN: Denies rash or itching. MUSCULOSKELETAL: Denies back pain, joint pain, or myalgia. NEUROLOGIC: Denies headache, numbness, or weakness. PSYCHIATRIC: Denies anxiety or depression. [facility] Past Medical History Medical History ADD (attention deficit disorder) Anxiety Hypertension Migraines Surgical History Surgical History Hx laparoscopic cholecystectomy 04/18/20 Family History Family History Mother Thyroid cancer Unknown Heart disease Cancer Social History Social History Smoking packs per day: 1 Smoking cigarettes per day: 20.0 Years smoked: 3 Smoking pack-years: 3.00 Smoking status: Former smoker Tobacco type: cigarettes Second hand tobacco smoke exposure: No Smoking end date: 04/12/05 Alcohol intake: current Substance use: never Substance use type: does not use Gender identity (if verbalized by the patient): Female Spiritual care concerns: No Exam Narrative: General appearance: Well-developed, well-nourished Skin: Pale Head: Normocephalic, nontraumatic Eyes: Clear conjunctiva ENT: Oropharynx normal, ears normal, nose normal Neck: Supple, nontender Chest and respiratory: Airway patent, no respiratory distress, no accessory muscle use Heart: Regular rate/rhythm Abdomen: Soft, nontender, no organomegaly, quiet bowel sounds Vascular: Normal peripheral pulses, normal capillary refill. Musculoskeletal: Normal range of motion, nontender back Neurologic: Alert and oriented ?3, PIPE SETTER is normal as tested, no gross motor deficit : External Female Exam: normal external appearance Speculum Exam - Vagina: vaginal bleeding (Largest size 10 x 5 cm blood clot in the vaginal pouch with bleeding) Course Course Emergency Course: Stable Consultations Consultation #1: Dr. Vallejo 1 g of TXA IV, admit to observation Date: 04/23/21 Time: 21:54 Vital Signs Vital signs: Vital S
--- NOTE | 2021-04-23 20:29 | PC.NURSE ---
Pelvic exam by ERP Dr. Andrews, this RN at bedside.
[2021-04-23] MEDS: SODIUM CHLORIDE 0.9% IV 1,000 ML 999 ML IV CONT (20:44)
[2021-04-23 21:04] LABS: Basophils Percent Auto 0.7 % (0.2-1.2); Eosinophils Absolute Auto 0.1 K/mm3 (0-0.3); Eosinophils Percent Auto 1.3 % (0-4.4); Hematocrit 31.5 % (37.0-47.0); Hemoglobin 9.9 g/dL (12.0-15.0); Immature Granulocyte Absolute 0.02 K/mm3 (0.00-0.031); Immature Granulocyte Percent A 0.3 % (0-0.5); Lymphocytes Absolute Auto 0.84 K/mm3 (0.9-3.2); Lymphocytes Percent Auto 14.1 % (18.3-44.2); Mean Corpuscular HGB Conc 31.4 g/dl (32-36); Mean Corpuscular Hemoglobin 24.7 pg (26-34); Mean Corpuscular Volume 78.6 fl (80-100); Mean Platelet Volume 11.9 fl (7.4-10.4); Monocytes Absolute Auto 0.5 K/mm3 (0.1-0.6); Monocytes Percent Auto 8.7 % (2.6-8.5); Neutrophils Absolute Auto 4.5 K/mm3 (1.3-6.7); Neutrophils Percent Auto 74.9 % (45.5-73.1); Platelet Count Result 192 k/mm3 (150-375); Red Blood Count 4.01 M/mm3 (4.2-5.4); Red Cell Distribution Width 15.4 % (11.5-14.5)
[2021-04-23 21:56] LABS: Alanine Aminotransferase 26 U/L (4-35); Albumin Level 3.4 g/dL (3.5-5.1); Alkaline Phosphatase 71 U/L (38-126); Anion Gap 3 mmol/L (8-16); Aspartate Amino Transferase 28 U/L (14-36); Bilirubin,Total 0.3 mg/dL (0.2-1.3); Blood Urea Nitrogen 8 mg/dL (7-17); Calcium 7.5 mg/dL (8.4-10.2); Carbon Dioxide 25 mmol/L (22-30); Chloride 107 mmol/L (98-107); Estimated CRCL calculation 109 ml/min; Estimated Glomerular Filt Rate > 60; Glucose 99 mg/dL (65-110); Potassium 3.5 mmol/L (3.4-5.0); Sodium 135 mmol/L (137-145)
[2021-04-23] MEDS: TRANEXAMIC ACID 1,000MG/ISO100 1,000 MG/100 ML BAG 200 MG IVPB (22:37)
[2021-04-23] MEDS: SODIUM CHLORIDE 0.9% IV 1,000 ML 150 ML IV CONT (23:19)
--- NOTE | 2021-04-23 23:25 | ADMGEN ---
This patient, Lisa Plaafox, was admitted to OB 2nd Floor Room 285-00. Patient/family oriented to hospital policies and general routines including ID bracelet, bed and alarms, visiting hours, pain management, procedures, bathroom and other care routines, personal items, smoking policy, room service/diet, and visiting hours. Information on how to activate the Rapid Response Team has been discussed. Patient/Family are encouraged to report perceived risks to care and to ask questions if they do not understand what they are told or what they should do.
[2021-04-24 00:20] LABS: Hematocrit 27.8 % (37.0-47.0); Hemoglobin 8.9 g/dL (12.0-15.0)
[2021-04-24 03:30] VITALS: BP 123/77; PULSE 79; RESP 18; TEMP 36.7
[2021-04-24] MEDS: SODIUM CHLORIDE 0.9% IV 1,000 ML 150 ML IV CONT (05:37)
[2021-04-24 05:50] LABS: Hemoglobin 8.2 g/dL (12.0-15.0)
[2021-04-24 08:10] VITALS: BP 123/83; PULSE 84; RESP 18; TEMP 36.4; O2SAT 99
[2021-04-24] MEDS: FERRIC SUBSULFATE 8 ML SOLUTION WITH APPLICATOR (09:00)
--- NOTE | 2021-04-24 09:00 | PC.NURSE ---
Dr. Bradford here to examine pt. RN assisted MD with speculum exam and application of Monsel's solution.
--- NOTE | 2021-04-24 09:32 | PM.IMHP ---
H&P: HPI History of Present Illness Date/Time: 04/24/21 09:32 Chief Complaint: vaginal bleeding Narrative: 35 yo female who presented to the ED for acute onset heavy vaginal bleeding. Pt is s/p a robotic hysterectomy on 03/24/21. Pt states she has had on and off vaginal bleeding since her 2 wk post op visit. She states the bleeding was typically light and only spotting. She states that yesterday she woke up with lower back pain. She states the pain persisted and then she started having heavier vaginal bleeding. She reports passing several palm size blood clots. Pt also started to feel dizzy and light headed so presented to the ED. Pt was noted to be anemic on evaluation. She was given TXA to control her bleeding. She states her bleeding has decreased since admission. She has only had a scant amount of blood on pads. She denies any continued lower back pain. Pt denies any diarrhea or constipation. Review of Systems Cardiovascular: Cardiovascular: Denies chest pain, Denies leg edema, Denies palpitations, Denies dyspnea and Denies dyspnea on exertion Respiratory: Respiratory: Denies cough, Denies dyspnea and Denies dyspnea on exertion Gastrointestinal: Gastrointestinal: Denies abdominal pain, Denies constipation, Denies diarrhea, Denies nausea and Denies vomiting Genitourinary: Genitourinary: Denies hematuria, Denies urinary frequency, Denies dysuria, Denies pelvic pain, Denies urinary incontinence and Denies vaginal discharge Neurologic: Reports system reviewed and no additional complaints, except as documented Psychiatric: Psychiatric: Reports no additional psychiatric complaints Endocrine: Endocrine: Denies palpitations PMFSH Past Medical History Medical History ADD (attention deficit disorder) Anxiety Hypertension Migraines Surgical History Surgical History Hx laparoscopic cholecystectomy 04/18/20 Family History Family History (Updated 04/23/21 @ 23:46 by Luli Ryan RN) Mother Thyroid cancer Heart disease Social History Social History Smoking packs per day: 1 Smoking cigarettes per day: 20.0 Years smoked: 3 Smoking pack-years: 3.00 Smoking status: Former smoker Tobacco type: cigarettes Second hand tobacco smoke exposure: No Smoking end date: 04/12/05 Alcohol intake: never Substance use: never Substance use type: does not use Gender identity (if verbalized by the patient): Female Spiritual care concerns: No Meds Home Medications and Allergies Home Medications Medication Instructions Recorded Confirmed Type escitalopram oxalate 10 mg PO HS 03/14/21 04/23/21 History losartan 100 mg PO DAILY 03/14/21 04/23/21 History methylphenidate HCl 36 mg PO DAILY 03/14/21 04/23/21 History ibuprofen 600 mg PO Q6H PRN #30 tablet 03/25/21 04/23/21 Rx Allergies Allergy/AdvReac Type Severity Reaction Status Date / Time progesterone Allergy Severe Hives Verified 03/24/21 11:37 [facility]ad[facility]il [[facility] Allergy Mild Hives Verified 03/24/21 11:37 martín Allergy Mild Hives Verified 03/24/21 11:37 Vital Signs Vital Signs - 24 hr 04/23/21 18:51 04/23/21 20:39 04/23/21 21:06 Temperature 36.6 C Pulse Rate 94 88 88 Respiratory Rate 18 14 16 Blood Pressure 121/83 129/90 120/80 Pulse Oximetry 100 99 100 04/23/21 22:35 04/23/21 22:37 04/23/21 22:39 Temperature Pulse Rate 88 116 H Respiratory Rate Blood Pressure 138/86 141/90 H 161/114 H Pulse Oximetry 04/23/21 22:46 04/23/21 23:25 04/24/21 03:30 Temperature 36.8 C 36.7 C Pulse Rate 86 66 79 Respiratory Rate 18 18 18 Blood Pressure 141/90 H 132/96 H 123/77 Pulse Oximetry 100 04/24/21 08:10 Temperature 36.4 C L Pulse Rate 84 Respiratory Rate 18 Blood Pressure 123/83 Pulse Oximetry 99 Exam Const: General: no acute distress Eyes: EOM: EOMs
[2021-04-24 12:22] VITALS: BP 120/82; PULSE 66; RESP 18; TEMP 36.7; O2SAT 99
[2021-04-24 12:50] VITALS: BP 111/68; PULSE 91; RESP 18; TEMP 37.4
[2021-04-24] MEDS: POLYSACCHARIDE IRON COMPLEX 150 MG CAPSULE PO (13:00)
[2021-04-24] MEDS: SENNA/DOCUSATE SODIUM TABLET 1 TAB PO (13:00)
--- NOTE | 2021-04-24 16:00 | PM.DS ---
DS: Admitting Diagnosis Discharge Date 04/24/21 Admitting Diagnosis vaginal bleeding DS: Summary Hospital Course Hospital Course: 35 yo female who presented with acute onset heavy vaginal bleeding. pt is s/p hysterectomy on 03/24/21. She was noted to be anemic on evaluation. Vaginal cuff was inspected and noted to be intact. Pt received IV TXA to help control bleeding. Pt was treated with Monsel's solution in the vaginal cuff. Pt had no further bleeding and was discharged home in stable condition. Status at Discharge Functional status at discharge: independent ambulation Overall status at discharge: patient is progressing back to baseline Time Spent with Patient Time attestation: Total time spent providing and/or coordinating discharge services: Time spent: Less than 30 minutes Exam Const: General: cooperative, healthy appearing and comfortable Eyes: General: appearance normal, both eyes and all related structures Resp: Effort & Inspection: normal respiratory effort and able to speak in complete sentences Cardio: Rate: regular rate GI: Inspection: normal to inspection and no abdominal wall ecchymosis GI Palp: No Tenderness to palpation present (GI) : Speculum Exam - Vagina: vaginal bleeding and other (suture material visualized ) Speculum Exam - Cervix: Cervix absent Bimanual exam- vagina & uterus: uterus absent DS: Data Data Completed and Pending Labs on day of discharge: Labs from last 24 hours 04/24/21 04/24/21 04/23/21 05:30 00:07 21:37 WBC RBC Hgb 8.2 L 8.9 L Hct 26.0 L 27.8 L MCV MCH MCHC RDW Plt Count MPV Immature Gran % (Auto) Neut % (Auto) Lymph % (Auto) [place] % (Auto) Eos % (Auto) Baso % (Auto) Lymph # (Auto) [place] # (Auto) Eos # (Auto) Baso # (Auto) Abs Immat Gran (auto) Absolute Neuts (auto) Absolute Nucleated RBC Nucleated RBC % Sodium 135 L Potassium 3.5 Chloride 107 Carbon Dioxide 25 Anion Gap 3 L BUN 8 Creatinine 0.70 Estim Creat Clear Calc 109 Estimated GFR > 60 Glucose 99 Calcium 7.5 L Total Bilirubin 0.3 AST 28 ALT 26 Alkaline Phosphatase 71 Total Protein 6.0 L Albumin 3.4 L Blood Type Antibody Screen 04/23/21 04/23/21 20:54 20:54 WBC 6.0 RBC 4.01 L Hgb 9.9 L Hct 31.5 L MCV 78.6 L MCH 24.7 L MCHC 31.4 L RDW 15.4 H Plt Count 192 MPV 11.9 H Immature Gran % (Auto) 0.3 Neut % (Auto) 74.9 H Lymph % (Auto) 14.1 L [place] % (Auto) 8.7 H Eos % (Auto) 1.3 Baso % (Auto) 0.7 Lymph # (Auto) 0.84 L [place] # (Auto) 0.5 Eos # (Auto) 0.1 Baso # (Auto) 0.0 Abs Immat Gran (auto) 0.02 Absolute Neuts (auto) 4.5 Absolute Nucleated RBC 0.0 Nucleated RBC % 0.0 Sodium Potassium Chloride Carbon Dioxide Anion Gap BUN Creatinine Estim Creat Clear Calc Estimated GFR Glucose Calcium Total Bilirubin AST ALT Alkaline Phosphatase Total Protein Albumin Blood Type O Positive Antibody Screen Negative Discharge Plan Discharge Discharging Clinician: Leland Bradford Anticipated Discharge Date/Time: 04/24/21 16:03 Patient Disposition: Home, Self-Care Activity: as tolerated and pelvic rest Diet: regular Patient Instructions: Antibiotic Form Stand Alone Forms: General Discharge Information Follow-up/Referrals: Leland Bradford MD [Physician] - 1 Week Discharge Medications: Continued losartan 50 mg tablet 100 mg PO DAILY RF: 0 methylphenidate HCl 36 mg tablet extended release 24hr 36 mg PO DAILY RF: 0 escitalopram oxalate 20 mg tablet 10 mg PO HS RF: 0 ibuprofen 600 mg Tablet 600 mg PO Q6H PRN (Reason: Cramping) Qty: 30 RF: 0 Date of admission: 04/23/21 21:58 Primary Care Provider: [place],Jonathan Admitting Provider: Anupam Vallejo Attending physician on admission: Anupam Vallejo Condition: Stabl
== END 2021-04-24 16:48 | disposition home or self-care (01) ==
LOC: ANHED 20:39 → ANHOB2 04-24 16:03
PROVIDERS: Admitting Provider Obstetrics & Gynecology; Emergency Provider Emergency Medicine; PCP Physician Assistant; Visit Provider Student in an Organized Health Care Education/Training Program
DX: N93.9 Abnormal uterine and vaginal bleeding, unspecified (principal); D64.9 Anemia, unspecified; Z90.710 Acquired absence of both cervix and uterus; I10 Essential (primary) hypertension; Z90.49 Acquired absence of other specified parts of digestive tract
CPT/HCPCS: 36415; 80053; 85014; 85018; 85025; 86850; 86900; 86901; 96361; 96365; 96367; 99285; A9270; G0378; J0131; J7030

== ENCOUNTER 2021-12-21 12:50 | Emergency (ER) | payer BC, SELFPAY ==
[2021-12-21 12:54] VITALS: BP 152/91; PULSE 80; RESP 14; TEMP 36.7; O2SAT 100
[2021-12-21] MEDS: KETOROLAC (*BKC) 60 MG/2 ML VIAL IM (14:00)
--- NOTE | 2021-12-21 14:20 | ED.GENADULT ---
HPI - General Adult General Chief complaint: Back Pain/Injury Stated complaint: back pain, lower all the way up to neck Time Seen by Provider: 12/21/21 13:36 History of Present Illness HPI narrative: Patient is a 36-year-old female who presents ER with aching back pain. Worsening over the last 2 days. Started in low back but is also in her shoulders as well. Its associated with some sore throat but no cough or fevers. Similar to previous diagnosis of COVID which concerns her. No trauma to the back. No lower extremity numbness or tingling. No urinary difficulty. Has taken some ibuprofen with only mild improvement. Related Data Home Medications Medication Instructions Recorded Confirmed escitalopram oxalate 20 mg tablet mg 12/21/21 12/21/21 losartan 100 mg tablet mg 12/21/21 methylphenidate HCl 36 mg mg PO 12/21/21 tablet,extended release 24 hr Allergies Allergy/AdvReac Type Severity Reaction Status Date / Time progesterone Allergy Severe Hives Verified 12/21/21 13:18 [email or web address] [From [facility]] Allergy Mild Hives Verified 12/21/21 13:18 martín Allergy Mild Hives Verified 12/21/21 13:18 Review of Systems Review of Systems: All systems reviewed & are unremarkable except as noted in HPI and below Constitutional: Constitutional: Denies chills and Denies fever(s) ENT: Denies nasal congestion and Reports sore throat Cardiovascular: Cardiovascular: Denies chest pain, Denies radiating jaw, neck or arm pain and Denies slow heart rate Respiratory: Respiratory: Denies cough, Denies dyspnea and Denies wheezing Gastrointestinal: Gastrointestinal: Denies abdominal pain, Denies nausea and Denies vomiting Musculoskeletal: Musculoskeletal: Reports back pain, Denies arthralgias and Denies joint swelling Neurologic: Denies focal weakness and Denies numbness PMFSH Past Medical History Medical History ADD (attention deficit disorder) Anxiety Hypertension Migraines Surgical History Surgical History Hx laparoscopic cholecystectomy 04/18/20 Family History Family History (Updated 04/23/21 @ 23:46 by Luli Ryan RN) Mother Thyroid cancer Heart disease Social History Social History Smoking packs per day: 1 Smoking cigarettes per day: 20.0 Years smoked: 3 Smoking pack-years: 3.00 Smoking status: Former smoker Tobacco type: cigarettes Second hand tobacco smoke exposure: No Smoking end date: 04/12/05 Alcohol intake: never Substance use: never Substance use type: does not use Gender identity (if verbalized by the patient): Female Spiritual care concerns: No Exam Narrative: GENERAL: Well-appearing, well-nourished, and in no acute distress. HEAD: Normocephalic, atraumatic. CHEST: Clear to auscultation. No respiratory distress. HEART: Regular rate and rhythm. Normal peripheral pulses. Back: No reproducible midline or paraspinal muscular tenderness of the T/L-spine. No tenderness of the cervical spine. EXTREMITIES: Normal range of motion. No edema. SKIN: Warm, dry, no rash. NEURO: Alert and oriented x3. PSYCH: Normal mood and affect. Course Course Emergency Course: Pain improved with Toradol. COVID test pending. Discharge home. Vital Signs Vital signs: Vital Signs Temperature 98.0 F 12/21/21 12:54 Pulse Rate 80 12/21/21 12:54 Respiratory Rate 14 12/21/21 12:54 Blood Pressure 152/91 H 12/21/21 12:54 Pulse Oximetry 100 12/21/21 12:54 Temperature 98.0 F 12/21/21 12:54 Pulse Rate 80 12/21/21 12:54 Respiratory Rate 14 12/21/21 12:54 Blood Pressure 152/91 H 12/21/21 12:54 Pulse Oximetry 100 12/21/21 12:54 Medical Decision Making Vital Signs Vital Signs: Vital Signs Temperature 98.0 F 12/21/21 12:54 Pulse Rate 80 12/21/21 12:54 Respiratory Rate 14 12/21/21 12:54
[2021-12-21 16:36] VITALS: BP 144/85; PULSE 88; RESP 17; O2SAT 98
[2021-12-21 17:12] LABS: SARS-CoV-2 RNA PCR Negative
== END 2021-12-21 17:09 | disposition home or self-care (01) ==
PROVIDERS: Emergency Provider Emergency Medicine; PCP Physician Assistant
DX: M79.10 Myalgia, unspecified site (principal); Z20.822 Contact with and (suspected) exposure to COVID-19; I10 Essential (primary) hypertension; F41.9 Anxiety disorder, unspecified; F98.8 Other specified behavioral and emotional disorders with onset usually occurring in childhood and adolescence; Z87.891 Personal history of nicotine dependence
CPT/HCPCS: 96372; 99283; C9803; J1885; U0003; U0005

== ENCOUNTER → 2022-03-16 10:56 | Outpatient (CLI) | payer BC, SELFPAY ==
--- NOTE | ~2022-03-16 | XR_ITS ---
XR hip LT min 2V DATE: 03/16/2022 11:34 INDICATION: Left hip pain TECHNIQUE: AP and lateral views COMPARISON: None FINDINGS: No fracture or dislocation, avascular necrosis or bone destruction of left hip. Left hip sinan int space is well preserved. Pubic symphysis and sacral iliac joints appear normally aligned. IMPRESSION: Negative left hip Reviewed, dictated and finalized at location [facility] IMPRESSION: Negative left hip
--- NOTE | ~2022-03-16 | XR_ITS ---
XR lumbar spine 2-3V DATE: 03/16/2022 11:33 INDICATION: Low back pain TECHNIQUE: AP, lateral, coned lateral lumbosacral views COMPARISON: None FINDINGS: The lumbar vertebrae are normally aligned. No fracture or bone destruction or spondylolisth esis. Lumbar and lumbosacral interspaces appear well preserved. There is very slight degenerative spu rring at L1-2. The lumbar pedicles are intact. The sacroiliac joints are normal. Surgical clips, right upper quadrant, consistent with cholecystectomy. IMPRESSION: Slight degenerative change of the lumbar spine Reviewed, dictated and finalized at location B. [employer]
== END ==
PROVIDERS: PCP Physician Assistant; Visit Provider Physician Assistant
DX: M25.552 Pain in left hip (principal)
CPT/HCPCS: 72100; 73502

== ENCOUNTER 2022-06-09 10:56 | Emergency (ER) | payer BC, SELFPAY ==
[2022-06-09 11:06] VITALS: BP 147/104; PULSE 93; RESP 16; TEMP 36.6; O2SAT 100
--- NOTE | 2022-06-09 11:15 | ED.URI ---
HPI - URI/Sore Throat General Chief Complaint: Upper Respiratory Infection Stated Complaint: sore throat Time Seen by Provider: 06/09/22 11:15 History of Present Illness HPI Narrative: 36 y/o female presented for c/o sore throat for a few days. Denies associated symptoms. Denies sick contacts. Not taking anything for pain.Maintaining secretions. Related Data Home Medications Medication Instructions Recorded Confirmed escitalopram oxalate 20 mg tablet mg 12/21/21 12/21/21 losartan 100 mg tablet mg 12/21/21 methylphenidate HCl 36 mg mg PO 12/21/21 tablet,extended release 24 hr Allergies Allergy/AdvReac Type Severity Reaction Status Date / Time progesterone Allergy Severe Hives Verified 06/09/22 11:17 [email or web address] [From [facility]] Allergy Mild Hives Verified 06/09/22 11:17 martín Allergy Mild Hives Verified 06/09/22 11:17 Review of Systems Review of Systems: CONSTITUTIONAL: Denies body aches, fever, chills, or sweats. EYES: Denies visual changes, redness, or discharge. ENT: Denies rhinorrhea, congestion, or otalgia. CARDIOVASCULAR: Denies chest pain, palpitations, or edema. RESPIRATORY: Denies dyspnea. GASTROINTESTINAL: Denies abdominal pain, nausea, vomiting, or diarrhea. SKIN: Denies rash, itching, or wounds. MUSCULOSKELETAL: Denies back pain, joint pain, or myalgia. NEUROLOGIC: Denies headache PMFSH Past Medical History Medical History ADD (attention deficit disorder) Anxiety Hypertension Migraines Surgical History Surgical History Hx laparoscopic cholecystectomy 04/18/20 Family History Family History Mother Thyroid cancer Heart disease Social History Social History Smoking packs per day: 1 Smoking cigarettes per day: 20.0 Years smoked: 3 Smoking pack-years: 3.00 Smoking status: Former smoker Tobacco type: cigarettes Second hand tobacco smoke exposure: No Smoking end date: 04/12/05 Alcohol intake: never Substance use: never Substance use type: does not use Living arrangements: with family Occupation/Education: unemployed Gender identity (if verbalized by the patient): Female Spiritual care concerns: No Exam Narrative: GENERAL: well-appearing, no acute distress. EYES: conjunctivae clear ENT: Mucous membranes moist. TMs pearly deleon with normal light reflex bilaterally; no tragal tenderness. Oropharynx mildly erythematous without lesions. Tonsils not enlarged and without exudate. No drooling, no hoarseness, no trismus, uvula midline. No tripod positioning, hot potato voice, or soft palate swelling. CHEST: Clear to auscultation, breath sounds equal. HEART: Regular rate and rhythm. No murmur heard. SKIN: Warm, dry, no rash. Course Course Emergency Course: Patient is aware of diagnosis, understands and agrees to treatment plan. Anticipatory guidance given. Patient agrees to follow-up as directed and is aware of reasons to seek care at the emergency department. Portions of this record may have been created with voice recognition software Level of Care: Express Care Visit Vital Signs Vital signs: Vital Signs Temperature 97.9 F 06/09/22 11:06 Pulse Rate 93 06/09/22 11:06 Respiratory Rate 16 06/09/22 11:06 Blood Pressure 147/104 H 06/09/22 11:06 Pulse Oximetry 100 06/09/22 11:06 Temperature 97.9 F 06/09/22 11:06 Pulse Rate 93 06/09/22 11:06 Respiratory Rate 16 06/09/22 11:06 Blood Pressure 147/104 H 06/09/22 11:06 Pulse Oximetry 100 06/09/22 11:06 MDM - URI/Sore Throat MDM Narrative Medical decision making narrative: strep result reviewed with pt. Advise supportive treatments. Patient is appropriate for outpatient treatment and follow-up. Differential Diagnosis Differential diagn
== END 2022-06-09 11:21 | disposition home or self-care (01) ==
PROVIDERS: Emergency Provider Nurse Practitioner Family; PCP Physician Assistant
DX: J02.9 Acute pharyngitis, unspecified (principal); I10 Essential (primary) hypertension; Z87.891 Personal history of nicotine dependence
CPT/HCPCS: 87081; 87880; 99213; G0463